=== PATIENT | male | born 1995 | race Caucasian/White ===

== ENCOUNTER 2020-05-07 14:12 | Emergency (ER) | payer SELFPAY ==
[2020-05-07] MEDS ORDERED: Ketorolac 60 MG/2 ML SDV IM ONE (14:40)
--- NOTE | 2020-05-07 14:45 | EDM.PDOC ---
ED HPI GENERAL MEDICAL PROBLEM - General Chief Complaint: Upper Extremity Injury/Pain Stated Complaint: NUMBNESS IN HANDS Time Seen by Provider: 05/07/20 14:22 Source of Information: Reports: Patient History Limitations: Reports: No Limitations - History of Present Illness INITIAL COMMENTS - FREE TEXT/NARRATIVE: Presents reporting bilateral finger numbness. 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 A few days ago he worked for 20 hours straight. Now he has pain, tingling and numbness in his hands particularly at the thumb second and third digits. The pain is worst at night and keeps him from sleeping and wakes him up frequently. During the day it is more tingling and numbness and decreased manager mac strength. Otherwise healthy without chronic medical problems and takes no medications. Has had the problem before but it only lasted for a short period of time but this time it has not gone away in 3 days. Right Hand Pain Score (Numeric/FACES): 6 - Related Data Allergies Allergy/AdvReac Type Severity Reaction Status Date / Time No Known Allergies Allergy Verified 05/07/20 14:26 Home Meds: Home Meds . [No Known Home Meds] 05/07/20 [History] Past Medical History HEENT History: Reports: None Cardiovascular History: Reports: None Respiratory History: Reports: None Gastrointestinal History: Reports: None Musculoskeletal History: Reports: None Neurological History: Reports: None Psychiatric History: Reports: None Endocrine/Metabolic History: Reports: None Hematologic History: Reports: None Immunologic History: Reports: None Oncologic (Cancer) History: Reports: None Dermatologic History: Reports: None - Infectious Disease History Infectious Disease History: Reports: None - Past Surgical History Male Surgical History: Reports: None Social & Family History - Tobacco Use Tobacco Use Comment: Chew tobacco daily - Caffeine Use Caffeine Use: Reports: Coffee, Energy Drinks, Soda Caffeine Use Comment: Daily - Recreational Drug Use Recreational Drug Use: No Review of Systems - Review of Systems Review Of Systems: Comprehensive ROS is negative, except as noted in HPI. ED EXAM, GENERAL - Physical Exam Exam: See Below Exam Limited By: No Limitations General Appearance: Alert, No Apparent Distress Ears: Normal External Exam Nose: Normal Inspection Throat/Mouth: Normal Inspection Head: Atraumatic, Normocephalic Neck: Normal Inspection Respiratory/Chest: No Respiratory Distress, Lungs Clear, Normal Breath Sounds Cardiovascular: Normal Peripheral Pulses, Regular Rate, Rhythm, No Murmur Back Exam: Normal Inspection Extremities: Normal Inspection, Other (Positive Phalen sign and Tinel test good full range of motion of all fingers without hesitation or limitation. Decreased manager mac strength bilateral. Radial pulse strong. Fingertips pink warm Adelita refill less than 2 seconds) Neurological: Alert, Oriented, Normal Cognition, Normal Gait Psychiatric: Normal Affect, Normal Mood Skin Exam: Warm, Dry, Intact, Normal Color, No Rash Lymphatic: No Adenopathy Course - Vital Signs Last Recorded V/S: Last Vital Signs Temp 36.1 C 05/07/20 14:24 Pulse 68 05/07/20 14:24 Resp 16 05/07/20 14:24 BP 127/69 05/07/20 14:24 Pulse Ox 98 05/07/20 14:24 - Orders/Labs/Meds Orders: Active Orders 24 hr Category Date Time Status Ketorolac [Toradol] Med 05/07/20 14:40 Once 60 mg IM ONETIME ONE Departure - Departure Time of Disposition: 14:45 Disposition: Home, Self-Care 01 Condition: Good Clinical Impression: Carpal tunnel syndrome on both sides - Discharge Information *PRESCRIPTION DRUG MONITORING PROGRAM REVIEWED*: Not Applicable *COPY OF PRESCRIPTION DRUG MONITORING REPORT IN PATIENT NIRMAL: Not Applicable Referrals: PCP,None [Primary Care Provider] - Additional Instructions: The following information is given to patients seen in the emergency department who are being discharged to home. This information is to outline your options for follow-up care. We provide all patients seen in our emergency department with a follow-up referral. The need for follow-up, as well as the timing and circumstances, are variable depending upon the specifics of your emergency department visit. If you don't have a primary care physician on staff, we will provide you with a referral. We always advise you to contact your personal physician following an emergency department visit to inform them of the circumstance of the visit and for follow-up with them and/or the need for any referrals to a consulting specialist. The emergency department will also refer you to a specialist when appropriate. This referral assures that you have the opportunity for follow-up care with a specialist. All of these measure are taken in an effort to provide you with optimal care, which includes your follow-up. Under all circumstances we always encourage you to contact your private physician who remains a resource for coordinating your care. When calling for follow-up care, please make the office aware that this follow-up is from your recent emergency room visit. If for any reason you are refused follow-up, please contact the [facility] Emergency Department at and asked to speak to the emergency department charge nurse. 1. Purchase wrist splints for each wrist and wear every night 2. Aleve 2 tabs a.m. and p.m. or ibuprofen 2-3 tabs 3 times daily with food. 3. Change up your job work pattern. 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 If your symptoms continue after 6 to 8 weeks, make an appointment in primary care for evaluation and definitive management Sepsis Event Note (ED) - Evaluation Sepsis Screening Result: No Definite Risk - Focused Exam Vital Signs: Vital Signs Temp Pulse Resp BP Pulse Ox 05/07/20 14:24 36.1 C 68 16 127/69 98 - My Orders Last 24 Hours: My Active Orders 05/07/20 14:40 Ketorolac [Toradol] 60 mg IM ONETIME ONE - Assessment/Plan Last 24 Hours: My Active Orders 05/07/20 14:40 Ketorolac [Toradol] 60 mg IM ONETIME ONE
== END 2020-05-07 15:10 | disposition home or self-care (01) ==
LOC: MW.ED 14:12
DX: G56.03 Carpal tunnel syndrome, bilateral upper limbs (principal); F17.220 Nicotine dependence, chewing tobacco, uncomplicated
CPT/HCPCS: 96372; 99283; J1885; 99282